=== PATIENT | male | born 1950 | race Caucasian/White ===

== ENCOUNTER 2023-11-13 22:41 | Inpatient (IN) | payer MEDICARE, OTHER, SELFPAY ==
[2023-11-13] MEDS ORDERED: dilTIAZem 125 MG/25 ML SDV ONE (23:14)
[2023-11-13 23:34] LABS: #Eosinphils 0.1 thou/uL (0.0-0.7); #Monocytes 0.8 thou/uL (0.11-0.59); %Basophils 0.3 % (0.0-1.0); %Eosinophils 0.8 % (0.0-10.0); %Monocytes 8.7 % (0.0-10.0); %Neutrophils 77.8 % (42.0-75.0); Hematocrit 43.5 % (42.0-52.0); Hemoglobin 15.4 g/dL (14.0-18.0); Mean Corpuscular HGB CONC 35.4 g/dL (32.0-36.0); Mean Platelet Volume 9.9 fL (7.4-10.4); Platelet Count 130 10x3/uL (130-400); RBC Distribution Width 12.8 % (11.5-14.5); Red Blood Cell (RBC) Count 4.53 mill/uL (4.70-6.10)
[2023-11-13 23:37] LABS: Bacteria/HPF None Seen HPF (None Seen); Bilirubin Negative (Negative); Blood, Urine Trace (Negative); CAUTI Indications for Culture Pelvic or flank pain; Clarity Clear (Clear); Glucose, Urine (Dipstick) Normal (Negative); Ketone, Urine Trace mg/dL (Negative); Leukocyte Negative Leu/uL (Negative); Nitrite Negative (Negative); Protein, Urine (Dipstick) Negative (Neg-Trace); RBC/HPF 0-3 HPF (0-3); Specific Gravity, Urine 1.018 (1.002-1.036); Squamous Epithelial 0-3 HPF (0-3); Urobilinogen Normal mg/dL (Less than 2); WBC/HPF 0-3 HPF (0-3); pH, Urine 5.5 (5.0-9.0)
[2023-11-13 23:40] LABS: Urine Culture Reflex No No
[2023-11-13 23:48] LABS: Acetaminophen Less than 10 mcg/mL (10.0-30.0); Alcohol Less than 10.0 mg/dL (Less than 10); Salicylate Less than 8.0 mg/dL (15.0-30.0)
[2023-11-13 23:51] LABS: Troponin I 0.017 ng/mL (< 0.028)
[2023-11-14] LABS: ALT (SGPT) 18 U/L (8-55); AST (SGOT) 27 U/L (5-34); Albumin 3.8 g/dL (3.4-4.8); Alkaline Phosphatase 69 U/L (40-110); Anion Gap 12 mmol/L (10-20); BUN (Urea Nitrogen) 23 mg/dL (8.4-25.7); Bilirubin, Total 1.8 mg/dL (0.2-1.2); Calc. Creatinine Clearance 0 mL/min (70-130); Calcium 9.1 mg/dL (7.8-10.44); Carbon Dioxide 20 mmol/L (23-31); Chloride 108 mmol/L (98-107); Estimated GFR 83; Globulin 2.1 g/dL (2.4-3.5); Glucose 91 mg/dL (83-110); Lipase 30 U/L (8-78); Magnesium 1.8 mg/dL (1.6-2.6); Protein, Total 5.9 g/dL (5.8-8.1); Sodium 136 mmol/L (136-145)
[2023-11-14 01:40] LABS: SARS-CoV-2 NAA Rapid Test Not Detected (NotDetected)
[2023-11-14] MEDS ORDERED: Enoxaparin 100 MG (1 mL) SYRINGE ONE (01:47)
[2023-11-14] MEDS ORDERED: Enoxaparin 60 MG (0.6 mL) SYRINGE ONE (01:48)
[2023-11-14] MEDS ORDERED: Acetaminophen 325 MG TAB PO PRN (01:52)
[2023-11-14] MEDS ORDERED: Ondansetron PF 4 MG/2 ML Vial IVP PRN (01:52)
[2023-11-14] MEDS ORDERED: Magnesium 2 GM/50 ML BAG (IN WATER) ONE (02:13)
[2023-11-14 02:44] VITALS: BMI 21.1
[2023-11-14 03:02] LABS: #Eosinphils 0.1 thou/uL (0.0-0.7); #Monocytes 0.6 thou/uL (0.11-0.59); #Neutrophils 4.5 thou/uL (1.40-6.50); %Basophils 0.3 % (0.0-1.0); %Eosinophils 1.7 % (0.0-10.0); %Lymphocytes 18.6 % (21.0-51.0); %Monocytes 9.4 % (0.0-10.0); %Neutrophils 69.5 % (42.0-75.0); Hematocrit 39.2 % (42.0-52.0); Hemoglobin 13.8 g/dL (14.0-18.0); Mean Corpuscular HGB CONC 35.2 g/dL (32.0-36.0); Mean Corpuscular Hemoglobin 34.2 pg (27.0-31.0); Mean Corpuscular Volume 97.3 fl (78.0-98.0); Mean Platelet Volume 9.8 fL (7.4-10.4); Platelet Count 124 10x3/uL (130-400); RBC Distribution Width 12.8 % (11.5-14.5); Red Blood Cell (RBC) Count 4.03 mill/uL (4.70-6.10); White Blood Cell (WBC) Count 6.5 10x3/uL (4.8-10.8)
[2023-11-14] MEDS: Amiodarone 150 MG, Admixture Fee 1 EACH in Dextrose 5% in Water 100 ML IVPB SCH (03:18)
[2023-11-14] MEDS: Amiodarone 450 MG in Dextrose 5% in Water 250 ML IVPB SCH (03:32)
[2023-11-14 04:22] LABS: Anion Gap 12 mmol/L (10-20); BUN (Urea Nitrogen) 21 mg/dL (8.4-25.7); Calc. Creatinine Clearance 74 mL/min (70-130); Calcium 8.8 mg/dL (7.8-10.44); Carbon Dioxide 21 mmol/L (23-31); Chloride 108 mmol/L (98-107); Estimated GFR 93; Glucose 97 mg/dL (83-110); Potassium 4.2 mmol/L (3.5-5.1); Sodium 137 mmol/L (136-145)
[2023-11-14 08:28] LABS: Troponin I 0.013 ng/mL (< 0.028)
[2023-11-14] MEDS ORDERED: Folic Acid 1 MG TAB ONE (09:21)
[2023-11-14] MEDS ORDERED: Thiamine 100 MG TAB ONE (09:22)
[2023-11-14] MEDS ORDERED: Enoxaparin 80 MG (0.8 mL) SYRINGE ONE (09:22)
[2023-11-14] MEDS ORDERED: Multivit, Therapeutic 1 TAB ONE (09:22)
[2023-11-14] MEDS: Folic Acid 1 MG TAB PO SCH (10:13)
[2023-11-14] MEDS: Multivit, Therapeutic 1 TAB PO SCH (10:13)
[2023-11-14] MEDS: Enoxaparin 80 MG (0.8 mL) SYRINGE SC SCH (10:13)
[2023-11-14] MEDS: Thiamine 100 MG TAB PO SCH (10:13)
[2023-11-15] MEDS: Famotidine/PF 20 mg/2ml Vial SLOW IVP SCH ×2 (10:33→20:17)
[2023-11-15] MEDS ORDERED: Iopamidol 370 76% 100 ML VIAL ONE (14:19)
[2023-11-15] MEDS ORDERED: Ipratropium/Albuterol 3 ML NEB NEB PRN (18:59)
[2023-11-15] MEDS: cefTRIAXone\\ROCEPHIN 1 GM in Sodium Chloride 0.9% 100 ML IVPB SCH (20:18)
[2023-11-15] MEDS: Azithromycin 500 MG in Sodium Chloride 0.9% 250 ML 250 ML IVPB SCH (21:29)
[2023-11-15] MEDS: Lorazepam 2 MG/ML VIAL SLOW IVP SCH (23:11)
[2023-11-15] MEDS: Metoprolol Tartrate 5 MG (5 mL) VIAL IVP SCH (23:12)
[2023-11-16 05:11] LABS: Anion Gap 13 mmol/L (10-20); BUN (Urea Nitrogen) 14 mg/dL (8.4-25.7); Calc. Creatinine Clearance 76 mL/min (70-130); Calcium 8.9 mg/dL (7.8-10.44); Carbon Dioxide 21 mmol/L (23-31); Chloride 102 mmol/L (98-107); Estimated GFR 94; Glucose 100 mg/dL (83-110); Sodium 132 mmol/L (136-145)
[2023-11-16 07:49] LABS: #Monocytes 0.7 thou/uL (0.11-0.59); #Neutrophils 3.3 thou/uL (1.40-6.50); %Basophils 0.4 % (0.0-1.0); %Monocytes 14.3 % (0.0-10.0); %Neutrophils 66.9 % (42.0-75.0); Hematocrit 40.8 % (42.0-52.0); Hemoglobin 14.9 g/dL (14.0-18.0); Mean Corpuscular HGB CONC 36.5 g/dL (32.0-36.0); Mean Corpuscular Hemoglobin 34.2 pg (27.0-31.0); Mean Corpuscular Volume 93.6 fl (78.0-98.0); Mean Platelet Volume 10.1 fL (7.4-10.4); Platelet Count 101 10x3/uL (130-400); RBC Distribution Width 12.2 % (11.5-14.5); Red Blood Cell (RBC) Count 4.36 mill/uL (4.70-6.10); White Blood Cell (WBC) Count 4.9 10x3/uL (4.8-10.8)
[2023-11-16] MEDS: Metoprolol Tartrate 25 MG TAB PO SCH (09:38)
[2023-11-16] MEDS ORDERED: Ipratropium/Albuterol 3 ML NEB NEB PRN (13:45)
[2023-11-16] MEDS ORDERED: guaiFENesin/Codeine 200 mg/20 mg 10 ml Cup PO PRN (13:48)
[2023-11-16] MEDS: Cefepime 2 GM in Sodium Chloride 0.9% 100 ML IVPB SCH (22:42)
[2023-11-17 04:48] LABS: #Monocytes 0.7 thou/uL (0.11-0.59); #Neutrophils 3.7 thou/uL (1.40-6.50); %Basophils 0.4 % (0.0-1.0); %Lymphocytes 15.5 % (21.0-51.0); %Monocytes 13.4 % (0.0-10.0); %Neutrophils 70.3 % (42.0-75.0); Hematocrit 44.1 % (42.0-52.0); Hemoglobin 15.6 g/dL (14.0-18.0); Mean Corpuscular HGB CONC 35.4 g/dL (32.0-36.0); Mean Corpuscular Hemoglobin 33.1 pg (27.0-31.0); Mean Corpuscular Volume 93.6 fl (78.0-98.0); Mean Platelet Volume 10.7 fL (7.4-10.4); Platelet Count 102 10x3/uL (130-400); RBC Distribution Width 12.1 % (11.5-14.5); Red Blood Cell (RBC) Count 4.71 mill/uL (4.70-6.10); White Blood Cell (WBC) Count 5.2 10x3/uL (4.8-10.8)
[2023-11-17 05:14] LABS: Anion Gap 13 mmol/L (10-20); BUN (Urea Nitrogen) 13 mg/dL (8.4-25.7); Calc. Creatinine Clearance 69 mL/min (70-130); Carbon Dioxide 24 mmol/L (23-31); Chloride 101 mmol/L (98-107); Estimated GFR 91; Glucose 101 mg/dL (83-110); Magnesium 1.8 mg/dL (1.6-2.6); Potassium 3.9 mmol/L (3.5-5.1); Sodium 134 mmol/L (136-145)
[2023-11-17] MEDS: Sacubitril 24MG/Valsartan 26 MG TAB PO SCH (21:05)
[2023-11-17] MEDS: Amiodarone 200 MG TAB PO SCH (21:06)
[2023-11-18 06:41] LABS: #Eosinphils 0.1 thou/uL (0.0-0.7); #Monocytes 0.6 thou/uL (0.11-0.59); %Basophils 0.2 % (0.0-1.0); %Eosinophils 1.1 % (0.0-10.0); %Lymphocytes 17.9 % (21.0-51.0); %Monocytes 13.5 % (0.0-10.0); %Neutrophils 66.9 % (42.0-75.0); Hematocrit 44.3 % (42.0-52.0); Hemoglobin 15.5 g/dL (14.0-18.0); Mean Corpuscular Hemoglobin 32.9 pg (27.0-31.0); Mean Corpuscular Volume 94.1 fl (78.0-98.0); Mean Platelet Volume 9.6 fL (7.4-10.4); RBC Distribution Width 12.1 % (11.5-14.5); Red Blood Cell (RBC) Count 4.71 mill/uL (4.70-6.10); White Blood Cell (WBC) Count 4.5 10x3/uL (4.8-10.8)
[2023-11-18 06:52] LABS: Platelet Count 104 10x3/uL (130-400)
[2023-11-18 07:16] LABS: ALT (SGPT) 20 U/L (8-55); AST (SGOT) 25 U/L (5-34); Albumin 3.2 g/dL (3.4-4.8); Alkaline Phosphatase 59 U/L (40-110); BUN (Urea Nitrogen) 12 mg/dL (8.4-25.7); Bilirubin, Total 0.7 mg/dL (0.2-1.2); Calc. Creatinine Clearance 64 mL/min (70-130); Calcium 8.4 mg/dL (7.8-10.44); Carbon Dioxide 27 mmol/L (23-31); Chloride 104 mmol/L (98-107); Estimated GFR 83; Globulin 2.3 g/dL (2.4-3.5); Glucose 93 mg/dL (83-110); Potassium 3.6 mmol/L (3.5-5.1); Protein, Total 5.5 g/dL (5.8-8.1); Sodium 139 mmol/L (136-145)
[2023-11-18 07:31] LABS: Anion Gap 11 mmol/L (10-20)
[2023-11-18] MEDS: Empagliflozin 10 MG TAB PO SCH (08:47)
[2023-11-18] MEDS: Cefepime 2 GM in Sodium Chloride 0.9% 100 ML IVPB SCH (11:24)
[2023-11-18] MEDS: Cefepime 1 GM in Sodium Chloride 0.9% 100 ML IVPB SCH (20:43)
[2023-11-19 06:38] LABS: #Monocytes 0.5 thou/uL (0.11-0.59); #Neutrophils 2.5 thou/uL (1.40-6.50); %Basophils 0.2 % (0.0-1.0); %Lymphocytes 27.3 % (21.0-51.0); %Monocytes 11.2 % (0.0-10.0); %Neutrophils 60.1 % (42.0-75.0); Hematocrit 46.4 % (42.0-52.0); Hemoglobin 16.8 g/dL (14.0-18.0); Mean Corpuscular HGB CONC 36.2 g/dL (32.0-36.0); Mean Corpuscular Hemoglobin 33.9 pg (27.0-31.0); Mean Corpuscular Volume 93.7 fl (78.0-98.0); Mean Platelet Volume 10.1 fL (7.4-10.4); Platelet Count 116 10x3/uL (130-400); RBC Distribution Width 12.1 % (11.5-14.5); Red Blood Cell (RBC) Count 4.95 mill/uL (4.70-6.10); White Blood Cell (WBC) Count 4.1 10x3/uL (4.8-10.8)
[2023-11-19 06:50] LABS: ALT (SGPT) 24 U/L (8-55); AST (SGOT) 32 U/L (5-34); Albumin 3.2 g/dL (3.4-4.8); Alkaline Phosphatase 60 U/L (40-110); Anion Gap 11 mmol/L (10-20); BUN (Urea Nitrogen) 11 mg/dL (8.4-25.7); Bilirubin, Total 0.7 mg/dL (0.2-1.2); Calc. Creatinine Clearance 72 mL/min (70-130); Calcium 8.5 mg/dL (7.8-10.44); Carbon Dioxide 24 mmol/L (23-31); Chloride 106 mmol/L (98-107); Estimated GFR 93; Globulin 2.4 g/dL (2.4-3.5); Glucose 84 mg/dL (83-110); Potassium 3.7 mmol/L (3.5-5.1); Protein, Total 5.6 g/dL (5.8-8.1); Sodium 137 mmol/L (136-145)
[2023-11-19] MEDS ORDERED: Cefepime 1 GM in Sodium Chloride 0.9% 100 ML IVPB SCH (09:00)
[2023-11-19 18:54] VITALS: BP 115/82; TEMP 97.5
[2023-11-19] MEDS ORDERED: Cefepime 2 GM in Sodium Chloride 0.9% 100 ML IVPB SCH (21:00)
[2023-11-26] MEDS ORDERED: Amiodarone 200 MG TAB PO SCH (09:00)
== END 2023-11-19 18:45 | disposition home or self-care (01) | DRG 308 ==
LOC: ERS 22:41 → ERHOLD 11-14 02:01 → OBSVTOIN 11-14 11:10 → 2NO 11-14 16:50
PROVIDERS: ADMIT Internal Medicine; ATTEND Internal Medicine
DX: I48.91 Unspecified atrial fibrillation (principal); J18.9 Pneumonia, unspecified organism; R04.2 Hemoptysis; Z11.52 Encounter for screening for COVID-19; Z90.49 Acquired absence of other specified parts of digestive tract; Z79.899 Other long term (current) drug therapy; Z87.891 Personal history of nicotine dependence; S09.90XA Unspecified injury of head, initial encounter; W18.30XA Fall on same level, unspecified, initial encounter; I42.0 Dilated cardiomyopathy; F10.90 Alcohol use, unspecified, uncomplicated; J32.0 Chronic maxillary sinusitis
CPT/HCPCS: 36415; 36416; 70450; 71045; 71275; 80048; 80053; 80307; 81001; 83605; 83690; 83735; 84443; 84484; 85025; 87040; 93005; 93306; J0282; J0456; J0692; J0696; J1650; J2060; J3475; J3490; J7050; J7070; Q9967; S0028

== ENCOUNTER 2024-04-21 09:19 | Day surgery (SDC) | payer MEDICARE ==
[2024-04-19 12:04] VITALS: BMI 22.1
[2024-04-19 13:08] LABS: Hematocrit 39.6 % (38.8-50.0); Hemoglobin 14.2 g/dL (13.5-17.5); Mean Corpuscular HGB CONC 35.9 g/dL (32.0-36.0); Mean Corpuscular Hemoglobin 34.3 pg (27.0-33.0); Mean Corpuscular Volume 95.7 fL (81.2-95.1); Mean Platelet Volume 10.1 fL (7.4-10.4); Platelet Count 156 10x3/uL (150-450); RBC Distribution Width 12.5 % (11.5-14.5); Red Blood Cell (RBC) Count 4.14 10x6/uL (4.32-5.72); White Blood Cell (WBC) Count 6.6 10x3/uL (3.5-10.5)
[2024-04-19 13:17] LABS: PTT 28.7 sec (22.0-33.0); Prothrombin Time 10.5 sec (9.5-12.1)
[2024-04-19 13:24] LABS: Anion Gap 13 mmol/L (10-20); BUN (Urea Nitrogen) 14 mg/dL (8.4-25.7); Calc. Creatinine Clearance 68 mL/min (70-130); Calcium 9.6 mg/dL (7.8-10.44); Carbon Dioxide 23 mmol/L (23-31); Chloride 109 mmol/L (98-107); Estimated GFR 85; Glucose 95 mg/dL (83-110); Potassium 4.9 mmol/L (3.5-5.1); Sodium 140 mmol/L (136-145)
[2024-04-21] MEDS ORDERED: Rocuronium Bromide 10 MG/ML (10ML VIAL) ONE (10:50)
[2024-04-21] MEDS ORDERED: Ondansetron PF 4 MG/2 ML Vial ONE (10:50)
[2024-04-21] MEDS ORDERED: Heparin 10,000 UNITS/ 10 ML VIAL ONE (10:54)
[2024-04-21] MEDS ORDERED: Protamine Sulfate 50 MG/5 ML VIAL ONE ×2 (10:54→10:55)
[2024-04-21] MEDS ORDERED: Heparin 25,000 units/D5W 500 ML ONE (10:54)
[2024-04-21] MEDS ORDERED: Lidocaine 1% PF 5 ML VIAL ONE (12:17)
[2024-04-21] MEDS ORDERED: PROPOFOL 20 ML ONE (12:17)
[2024-04-21] MEDS ORDERED: Isoproterenol 0.2 MG/1 ML AMP ONE (12:35)
[2024-04-21] MEDS ORDERED: fentaNYL 50 mcg/mL 1 mL Vial ONE ×4 (12:58→15:47)
[2024-04-21] MEDS ORDERED: SUGAMMADEX SODIUM 200 MG/2 ML VIAL ONE (12:58)
[2024-04-21] MEDS ORDERED: PHENYLEPHRINE-NS 100 MCG/ML 10 ML SYRINGE ONE (13:20)
[2024-04-21] MEDS ORDERED: Dexamethasone 20 MG/5 ML VIAL ONE (13:20)
[2024-04-21] MEDS ORDERED: Propofol 500 MG/50 ML VIAL ONE (14:27)
[2024-04-21] MEDS ORDERED: Ketorolac Tromethamine 30 MG (1 mL) VIAL ONE (15:44)
== END 2024-04-21 19:32 | disposition home or self-care (01) ==
LOC: SDC 09:19
PROVIDERS: ATTEND Internal Medicine Cardiovascular Disease
PROC: 4A023FZ Measurement of Cardiac Rhythm, Percutaneous Approach (ICD-10-PCS; principal; 2024-04-21)
PROC: 4A0234Z Measurement of Cardiac Electrical Activity, Percutaneous Approach (ICD-10-PCS; 2024-04-21)
DX: I48.19 Other persistent atrial fibrillation (principal); I50.9 Heart failure, unspecified; I42.0 Dilated cardiomyopathy; F10.90 Alcohol use, unspecified, uncomplicated; Z87.891 Personal history of nicotine dependence; Z79.01 Long term (current) use of anticoagulants; Z79.899 Other long term (current) drug therapy; Z92.89 Personal history of other medical treatment
CPT/HCPCS: 80048; 85027; 85347 ×2; 85610; 85730; 93005; 93622; 93623; 93656; 93657; C1732 ×3; C1759; C1760; C1894 ×2; J1100; J1644 ×2; J1885; J2405; J2704 ×2; J2720; J3010

== ENCOUNTER 2024-10-29 10:56 | Outpatient (CLI) | payer MEDICARE ==
[2024-10-29 12:20] LABS: #Basophils Less than 0.03 10x3/uL (0.0-0.2); %Basophils 0.3 % (0.0-1.0); %Eosinophils 0.7 % (0.0-10.0); %Lymphocytes 13.6 % (21.0-51.0); %Monocytes 8.2 % (0.0-10.0); %Neutrophils 76.9 % (42.0-75.0); Hematocrit 41.1 % (42.0-52.0); Mean Corpuscular HGB CONC 34.1 g/dL (32.0-36.0); Mean Corpuscular Hemoglobin 32.9 pg (27.0-31.0); Mean Corpuscular Volume 96.5 fL (78.0-98.0); Mean Platelet Volume 9.8 fL (7.4-10.4); Platelet Count 171 10x3/uL (130-400); RBC Distribution Width 12.4 % (11.5-14.5); Red Blood Cell (RBC) Count 4.26 mill/uL (4.70-6.10)
[2024-10-29 12:34] LABS: INR-International Normal Ratio 0.9; Prothrombin Time 12.5 sec (12.0-14.7)
[2024-10-29 12:43] LABS: ALT (SGPT) 23 U/L (Less than 45); AST (SGOT) 29 U/L (11-34); Albumin 4.3 g/dL (3.1-4.5); Alkaline Phosphatase 85 U/L (40-110); Anion Gap 12 mmol/L (10-20); BUN (Urea Nitrogen) 14 mg/dL (8.4-25.7); Bilirubin, Total 0.7 mg/dL (0.3-1.2); Calc. Creatinine Clearance 0 mL/min (70-130); Calcium 9.4 mg/dL (7.8-10.44); Carbon Dioxide 27 mmol/L (23-31); Chloride 107 mmol/L (98-107); Estimated GFR 93; Globulin 2.8 g/dL (2.4-3.5); Glucose 74 mg/dL (83-110); Potassium 4.5 mmol/L (3.5-5.1); Protein, Total 7.1 g/dL (5.8-8.1); Sodium 141 mmol/L (136-145)
== END 2024-10-29 10:57 | disposition home or self-care (01) ==
LOC: LABBT 10:56
PROVIDERS: ATTEND Student in an Organized Health Care Education/Training Program
DX: Z01.818 Encounter for other preprocedural examination (principal); M16.12 Unilateral primary osteoarthritis, left hip
CPT/HCPCS: 80053; 85025; 85610; 87081; 93005; 93010